=== PATIENT | female | born 1975 | race Caucasian/White ===

== ENCOUNTER 2023-03-06 13:43 | Emergency (ER) | payer MEDICAID ==
[~2023-03-06] VITALS: Ht 160 cm; Wt 59.1 kg
[2023-03-06 13:49] VITALS: TEMP 98.6
[2023-03-06] MEDS ORDERED: LIDOCAINE 1% 10 ML VIAL PERC ONE (14:30)
[2023-03-06] MEDS ORDERED: PERTUSS(ACELL),DIPH,TET VAC/PF 0.5 ML SYRINGE IM. ONE (14:30)
[2023-03-06] MEDS ORDERED: LORazepam 1 MG TABLET PO ONE (14:30)
[2023-03-06] MEDS ORDERED: DOXY-354 PO (18:20)
[2023-03-06] MEDS ORDERED: OXYC-38 PO (18:22)
[2023-03-06] MEDS ORDERED: IBUP-1492 PO (18:23)
[2023-03-06 18:55] VITALS: BP 160/90; PULSE 81; RESP 16
== END 2023-03-06 19:38 | disposition home or self-care (01) ==
LOC: EMS 13:43
DX: S62.616B Displaced fracture of proximal phalanx of right little finger, initial encounter for open fracture (principal); F10.90 Alcohol use, unspecified, uncomplicated; F12.90 Cannabis use, unspecified, uncomplicated; F15.90 Other stimulant use, unspecified, uncomplicated; W27.0XXA Contact with workbench tool, initial encounter; Y93.89 Activity, other specified; Y92.89 Other specified places as the place of occurrence of the external cause; Y99.8 Other external cause status
CPT/HCPCS: 99283; 73140; 90715; 90471; 12002; J3490